=== PATIENT | female | born 1980 | race Caucasian/White ===

== ENCOUNTER → 2020-12-20 | Outpatient (CLI) | payer OTHER ==
[~2020-12-20] MED LIST: DOCU240C31 PO; IBUP-1222 PO; OXYC1TAB14 PO
== END | disposition home or self-care (01) ==
LOC: CFH 10:22
PROVIDERS: ATTEND Obstetrics & Gynecology
DX: Z12.31 Encounter for screening mammogram for malignant neoplasm of breast (principal)
CPT/HCPCS: 77063; 77067